=== PATIENT | male | born 1985 | race Caucasian/White ===

== ENCOUNTER → 2021-07-24 11:30 | Outpatient (BNVA) | payer OTHER, SELFPAY | PROVIDERS: Family Provider Nurse Practitioner Family; PCP Nurse Practitioner Family; Visit Provider Registered Nurse | DX: Z00.00 Encounter for general adult medical examination without abnormal findings (principal); E11.9 Type 2 diabetes mellitus without complications; Z71.3 Dietary counseling and surveillance | CPT/HCPCS: 80053; 80061; 83036; 85025 ==

== ENCOUNTER → 2022-12-07 07:59 | Outpatient (BNVA) | payer OTHER, SELFPAY | PROVIDERS: Family Provider Nurse Practitioner Family; PCP Registered Nurse; Visit Provider Registered Nurse | DX: E11.9 Type 2 diabetes mellitus without complications (principal); Z13.6 Encounter for screening for cardiovascular disorders; Z82.49 Family history of ischemic heart disease and other diseases of the circulatory system; Z00.00 Encounter for general adult medical examination without abnormal findings; Z71.85 Encounter for immunization safety counseling; E66.9 Obesity, unspecified; Z71.3 Dietary counseling and surveillance; Z71.82 Exercise counseling | CPT/HCPCS: 80053; 80061; 83036; 85025 ==

== ENCOUNTER 2022-12-21 08:05 | Outpatient (CLI) | payer OTHER, SELFPAY ==
--- NOTE | 2022-12-21 | ECG_ITS ---
[facility] Test Date: 2022-12-21 Pat Name: Og Mike Department: Room: Gender: Male Rn Transport: Annitacandi SmithSuzanne : 1985 Requested By: Kim Gonzales Order Number: [id number] Saqib MD: Andrade Dowd M.D. Interpretive Statements NAME OF STUDY: EXERCISE SESTAMIBI STRESS TEST INDICATION: [Screening , ] EXERCISE DATA: The patient was exercised by Clemente protocol. Baseline heart rate was 64 beats per minute. Baseline blood pressure was 122/79 millimeters of mercury. Target heart rate was 155 beats per minute. Maximum heart rate achieved was 173, which was 116% of the target heart rate. Maximum blood pressure was 217/111 millimeters of mercury. Total exercise time was 10 minutes 44 seconds. Maximum METs achieved was 13.5. The reason for ending the test was maximal effort achieved. The patient complained of shortness of breath during the stress test, which then resolved at the end of the test. ELECTROCARDIOGRAM: BASELINE: Showed sinus rhythm, normal axis, no significant ST-T changes at the baseline noted. [] EXERCISE: At the peak exercise level, [] No significant ST-T changes suggestive of ischemia noted. [] RECOVERY: During the recovery period, heart rate dropped appropriately. Occasional PVCs were seen. No significant ST-T changes in the recovery suggestive of ischemia noted. [] CONCLUSION: 1. Exercise capacity excellent. 2. Heart rate response was appropriate. 3. Blood pressure response was hypertensive. 4. Symptoms not suggestive of ischemia. 5. Electrocardiogram portion of the stress test was not suggestive of ischemia. 6. Nuclear scan will be documented separately. Electronically Signed On 12-26-2022 20:55:27 CDT by Andrade Dowd M.D. [id number]
--- NOTE | 2022-12-21 08:27 | NMCV_ITS ---
NM mingo perf SPECT r/s* [id number] Og Mike Age: 37 Gender: M : 1985 Exam Date: 12/21/2022 09:13 Ordering Phys: iKm Gonzales LANGUAGE TRANSLATOR Technologist: MIRIAM Martin Exam Location: [facility] Indications: FAMILY HISTORY OF ISCHEMIC HEART DISEASE STRESS TEST Please see separate stress test report in [facility] for full findings IMAGE PROTOCOL Rest/Stress 1 Exercise Day Radiopharmaceutical Dose (mCi) Administration Site Administered by Rest: Tc-99m 10.5 IV MIRIAM Curran Sestamimalinda Stress:Tc-99m 29.2 IV MIRIAM Curran Sestamimalinda Rest: 21-Dec-2022 60 Discovery 630 Stress: 21-Dec-2022 15 Discovery 630 Radiopharmaceutical was injected at 92 % maximum heart rate. Images obtained in supine and prone position. SPECT RESULTS Technical Quality: Excellent Raw Data Analysis: Normal Image Corrections: No attenuation or motion correction applied Summed Stress Score: 1 Summed Rest Score: 0 Summed Difference Score: 1 PERFUSION FINDINGS SPECT images demonstrate homogeneous tracer distribution throughout the myocardium. FUNCTIONAL RESULTS (calculated via Gated SPECT) Stress Image LV EF (%): 73 Stress EDV (mL):150 TID: 0.97 Stress ESV (mL):40 FUNCTIONAL FINDINGS: There is normal left ventricular systolic function. IMPRESSIONS 1. Normal myocardial perfusion imaging with no evidence of ischemia 2. LV systolic function is normal Andrade Dowd MD (Electronically Signed) Final Date: 21 December 2022 17:54 S
[2022-12-21 08:28] VITALS: BMI 37.3
[2022-12-21 10:13] VITALS: BP 164/73; PULSE 99
== END 2022-12-21 08:06 | disposition home or self-care (01) ==
LOC: CDL 08:08
PROVIDERS: PCP Registered Nurse; Visit Provider Registered Nurse
DX: Z13.6 Encounter for screening for cardiovascular disorders (principal); Z82.49 Family history of ischemic heart disease and other diseases of the circulatory system
CPT/HCPCS: 36415; 78452; 80053; 80061; 83036; 85025; 93017; A9500

== ENCOUNTER → 2024-10-16 09:17 | Outpatient (BNVA) | payer OTHER, SELFPAY | PROVIDERS: PCP Registered Nurse; Visit Provider Registered Nurse | DX: E11.9 Type 2 diabetes mellitus without complications (principal) | CPT/HCPCS: 80053; 80061; 83036; 85025 ==